=== PATIENT | female | born 1965 | race Caucasian/White ===

== ENCOUNTER → 2016-12-14 | Outpatient (CLI) | payer OTHER | LOC: MC.RAD 10:11 | DX: Z12.31 Encounter for screening mammogram for malignant neoplasm of breast (principal) ==

== ENCOUNTER 2016-12-20 14:39 | Day surgery (SDC) | payer OTHER ==
[~2016-12-20] VITALS: Ht 175.3 cm; Wt 74.2 kg
[2016-12-20 16:12] VITALS: BP 108/81; PULSE 70; TEMP 99.2
[2016-12-20 17:17] VITALS: BP 107/79; PULSE 80; TEMP 97.7
[2016-12-20 17:30] VITALS: BP 110/85; PULSE 72
[2016-12-20 17:45] VITALS: BP 107/76; PULSE 78
[2016-12-20 17:52] VITALS: BP 113/75; PULSE 67
== END 2016-12-20 17:50 | disposition home or self-care (01) ==
LOC: SDCO 14:39
DX: Z12.11 Encounter for screening for malignant neoplasm of colon (principal)
CPT/HCPCS: OP; J2250; J3010; J7030

== ENCOUNTER → 2021-01-06 | Outpatient (CLI) | payer BC | LOC: MC.RAD 13:30 | DX: Z12.31 Encounter for screening mammogram for malignant neoplasm of breast (principal) ==